=== PATIENT | male | born 1960 | race African-American/Black ===

== ENCOUNTER 2019-01-27 14:09 | Inpatient (IN) | payer OTHER ==
[~2019-01-27] VITALS: Ht 182.9 cm; Wt 113.4 kg
[~2019-01-27 14:09] MED LIST: AMOX-421 PO; INSU3INS6 SUBCUT; INSULIN
[2019-01-27] MEDS ORDERED: SODIUM CHLORIDE 0.9% 1,000 ML IV ONE (14:54)
[2019-01-27 15:25] LABS: BASOPHILS % 0.2 % (0.0-2.0); EOSINOPHILS % 0.1 % (0.0-5.0); HEMATOCRIT. 39.6 % (42.0-52.0); HEMOGLOBIN. 12.9 g/dL (14.0-18.0); LYMPHOCYTES % 12.4 % (20.0-50.0); MEAN CORPUSCULAR HEMOGLOBIN 27.5 pg (28.0-32.0); MEAN CORPUSCULAR VOLUME 84.7 fL (80.0-94.0); MEAN PLATELET VOLUME 9.4 fl (7.4-10.4); MONOCYTES % 6.7 % (2.0-8.0); NEUTROPHILS % 80.6 % (40.0-76.0); PLATELET 241 x1000/uL (130-400); RED BLOOD CELL COUNT 4.68 mill/uL (4.7-6.1); RED CELL DISTRIBUTION WIDTH 15.1 % (11.6-14.6)
[2019-01-27 15:32] LABS: PROTHROMBIN TIME 10.4 sec (9.6-11.0)
[2019-01-27 15:33] LABS: CHLORIDE 106 mEq/L (98-107)
[2019-01-27 15:42] LABS: BETA HYDROXYBUTYRATE 0.1 mMol/L (0.0-0.3)
[2019-01-27 19:00] LABS: CLARITY URINE CLEAR (CLEAR); COLOR URINE YELLOW (YELLOW); KETONES URINE TRACE (NEGATIVE); LEUKOCYTE ESTERASE URINE NEGATIVE (NEGATIVE); NITRITE URINE NEGATIVE (NEGATIVE); OCCULT BLOOD URINE TRACE (NEGATIVE); PROTEIN URINE 3+ (NEGATIVE); SPECIFIC GRAVITY URINE 1.024 (1.005-1.030); UROBILINOGEN URINE 0.2 E.U./dL (0.2-1.0)
[2019-01-27] MEDS ORDERED: SODIUM CHLORIDE 0.9% 500 ML IV NR (19:32)
[2019-01-27] MEDS ORDERED: IPRATROPIUM/ALBUTEROL 0.5-3(2.5)MG/3ML NEB INH PRN (19:45)
[2019-01-27] MEDS ORDERED: HYDROCODONE/ACETAMINOPHEN 5/325MG TABLET PO PRN (19:45)
[2019-01-27] MEDS ORDERED: ACETAMINOPHEN 325MG TABLET PO PRN (19:45)
[2019-01-27] MEDS ORDERED: MAGNESIUM/ALUMINUM HYDROXIDE/SIMETHICONE 30ML UDC PO PRN (19:45)
[2019-01-27] MEDS ORDERED: ONDANSETRON HCL 4MG/2ML INJ IV PRN (19:45)
[2019-01-27] MEDS ORDERED: CLONIDINE 0.1MG TABLET PO PRN (19:45)
[2019-01-27] MEDS ORDERED: DOCUSATE SODIUM 100MG CAPSULE PO PRN (19:45)
[2019-01-27 20:34] LABS: CHLORIDE 108 mEq/L (98-107)
[2019-01-27 22:00] VITALS: BP 131/76
[2019-01-27] MEDS ORDERED: ENOXAPARIN 40MG/0.4ML SYR SUBCUT SCH (22:00)
[2019-01-27] MEDS ORDERED: DEXTROSE 50% WATER 50ML SYRINGE IV PRN (22:30)
[2019-01-27] MEDS: BLOOD SUGAR DIAGNOSTIC STRIP TEST SCH (22:31)
[2019-01-27] MEDS: INSULIN LISPRO 100 UNITS/ML SUBCUT SCH (22:34)
[2019-01-28] VITALS: BP 120/53
[2019-01-28 00:42] LABS: CREATINE KINASE 276 IU/L (39-308)
[2019-01-28 00:43] LABS: CREATINE KINASE MB FRACTION 3.1 ng/mL (0.5-3.6)
[2019-01-28 04:00] VITALS: BP 108/52
[2019-01-28] MEDS: BLOOD SUGAR DIAGNOSTIC STRIP TEST SCH ×3 (06:42→17:40)
[2019-01-28 06:48] LABS: BASOPHILS % 0.1 % (0.0-2.0); EOSINOPHILS % 0.7 % (0.0-5.0); HEMATOCRIT. 36.1 % (42.0-52.0); HEMOGLOBIN. 11.6 g/dL (14.0-18.0); LYMPHOCYTES % 27.5 % (20.0-50.0); MEAN CORPUSCULAR HEMOGLOBIN 27.3 pg (28.0-32.0); MEAN CORPUSCULAR VOLUME 84.8 fL (80.0-94.0); MEAN PLATELET VOLUME 10.2 fl (7.4-10.4); MONOCYTES % 8.1 % (2.0-8.0); NEUTROPHILS % 63.6 % (40.0-76.0); PLATELET 225 x1000/uL (130-400); RED BLOOD CELL COUNT 4.25 mill/uL (4.7-6.1); RED CELL DISTRIBUTION WIDTH 15.6 % (11.6-14.6)
[2019-01-28 07:19] LABS: LDL CHOLESTEROL 114 mg/dL (5-100)
[2019-01-28 07:20] LABS: CREATINE KINASE 244 IU/L (39-308)
[2019-01-28 07:21] LABS: HDL CHOLESTEROL 45 mg/dL (40-59)
[2019-01-28 07:24] LABS: CREATINE KINASE MB FRACTION 2.6 ng/mL (0.5-3.6)
[2019-01-28 08:11] LABS: *AMPHETAMINES SCREEN URINE NEGATIVE (NEGATIVE); *BARBITURATES SCREEN URINE NEGATIVE (NEGATIVE); *BENZODIAZEPINES SCREEN URINE NEGATIVE (NEGATIVE); *COCAINE SCREEN URINE NEGATIVE (NEGATIVE); CANNABINOID URINE SCREEN NEGATIVE (NEGATIVE); METHADONE URINE SCREEN NEGATIVE (NEGATIVE); OPIATES URINE SCREEN NEGATIVE (NEGATIVE); PHENCYCLIDINE URINE SCREEN NEGATIVE (NEGATIVE)
[2019-01-28] MEDS: INSULIN LISPRO 100 UNITS/ML SUBCUT SCH ×3 (08:55→18:10)
[2019-01-28 12:00] VITALS: BP 146/76
[2019-01-28 16:00] VITALS: BP 140/75
== END 2019-01-28 19:45 | disposition left against medical advice (07) | DRG 420 ==
LOC: ER 14:09 → EDBEDREQ 15:35 → 7WST 16:34 → EDBEDREQ 16:36 → ENRESERV 20:52
PROVIDERS: ADMIT Internal Medicine; ATTEND Internal Medicine
PROC: 0HDNXZZ Extraction of Left Foot Skin, External Approach (ICD-10-PCS; principal; 2019-01-28)
DX: E11.65 Type 2 diabetes mellitus with hyperglycemia (principal); G92 Toxic encephalopathy; E11.42 Type 2 diabetes mellitus with diabetic polyneuropathy; N28.9 Disorder of kidney and ureter, unspecified; L57.0 Actinic keratosis; M20.42 Other hammer toe(s) (acquired), left foot; R00.1 Bradycardia, unspecified; Z79.4 Long term (current) use of insulin
CPT/HCPCS: 36415; 71045; 80048; 80061; 80305; 82010; 82533; 82550; 82553; 82962; 83036; 83605; 83735; 83880; 84443; 84484; 93005; 93970; 96361; 96374; 99291; J1650; J1815; J7030

== ENCOUNTER 2025-05-25 18:34 | Emergency (ER) | payer MEDICAID ==
[~2025-05-25] VITALS: Ht 152.4 cm; Wt 55.0 kg
[~2025-05-25 18:34] MED LIST changes: +AMLO10TA80 PO; -AMOX-421 PO; +FURO-152 PO; -INSU3INS6 SUBCUT; -INSULIN; +LANTUSUD SUBCUT; +LIP40 MT; +LISI20TA31 PO
[2025-05-25 18:37] VITALS: O2SAT 100
[2025-05-25 18:50] VITALS: BP_DIAS 64; TEMP 36.8
[2025-05-25] MEDS: SODIUM CHLORIDE 0.9% 1,000 ML IV ONE (19:15)
[2025-05-25 19:27] LABS: BASOPHILS % 0.4 % (0.0-2.0); EOSINOPHILS % 2.9 % (0.0-5.0); HEMATOCRIT. 27.0 % (42.0-52.0); HEMOGLOBIN. 8.9 g/dL (14.0-18.0); LYMPHOCYTES % 22.0 % (20.0-50.0); MEAN PLATELET VOLUME 9.2 fl (7.4-10.4); MONOCYTES % 9.4 % (2.0-8.0); NEUTROPHILS % 65.3 % (40.0-76.0); PLATELET 230 x1000/uL (130-400); RED BLOOD CELL COUNT 3.19 mill/uL (4.7-6.1); RED CELL DISTRIBUTION WIDTH 15.4 % (11.6-14.6)
[2025-05-25 19:41] LABS: TROPONIN I HIGH SENSITIVITY 19 ng/L (3.0-53); UREA NITROGEN BLOOD 20 mg/dL (9-23)
[2025-05-25 19:43] LABS: ASPARTATE AMINOTRANSFERASE 18 IU/L (<34); BILIRUBIN DIRECT < 0.1 mg/dL (<=3.0); BILIRUBIN TOTAL 0.3 mg/dL (0.1-1.0); PROTEIN TOTAL 7.4 g/dL (6.0-8.3)
[2025-05-25 19:44] LABS: CREATININE 3.2 mg/dL (0.6-1.3)
[2025-05-25 21:29] LABS: TROPONIN I HIGH SENSITIVITY 17 ng/L (3.0-53)
[2025-05-25 21:37] VITALS: BP_SYST 72; PULSE 65; RESP 17; O2SAT 99
== END 2025-05-25 23:09 | disposition left against medical advice (07) ==
LOC: ER 18:34 → EDBEDREQTM 20:53 → EDBEDREQ 20:53 → ER 23:09 → CMPBEDREQ 05-26 19:22
DX: I13.11 Hypertensive heart and chronic kidney disease without heart failure, with stage 5 chronic kidney disease, or end stage renal disease (principal); N18.6 End stage renal disease; R55 Syncope and collapse; E11.22 Type 2 diabetes mellitus with diabetic chronic kidney disease; E78.00 Pure hypercholesterolemia, unspecified; Z99.2 Dependence on renal dialysis; Z79.899 Other long term (current) drug therapy
CPT/HCPCS: 99285; 96360; 70450; 71045; 80076; 80048; 85025; 84484; 36415; 93005; J7030